=== PATIENT | male | born 1950 | race Caucasian/White ===

== ENCOUNTER → 2020-06-22 | Outpatient (CLI) | payer MEDICARE, BC ==
--- NOTE | 2020-06-22 16:07 | RAD ---
KNEE LEFT 3V 06/22/2020 12:00 AM INDICATION: Left knee pain status post knee replacement September COMPARISON: Left knee radiograph 10/26/2019. TECHNIQUE: 3 views the left knee are provided. FINDINGS/ IMPRESSION: 1. 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 There is no lucency surrounding the hardware. No evidence for hardware failure. 2. There is a moderate knee joint effusion. There is fragmentation along the superior margin of the patella, new from the prior examination. This could represent a fractured osteophyte. Electronically signed by: Reyna Liz MD (06/22/2020 4:04 PM) [id number]
== END | disposition home or self-care (01) ==
LOC: DXRAD 10:52
PROVIDERS: ATTEND Physician Assistant
DX: M25.462 Effusion, left knee (principal); Z96.652 Presence of left artificial knee joint
CPT/HCPCS: 73562